=== PATIENT | female | born 1995 | race African-American/Black ===

== ENCOUNTER 2016-11-14 20:02 | Emergency (ER) | payer MEDICAID ==
[~2016-11-14] VITALS: Ht 170.2 cm; Wt 136.0 kg
[2016-11-14 20:07] VITALS: BP 119/71
== END 2016-11-14 22:15 | disposition left against medical advice (07) ==
LOC: ER 20:29
DX: R51 Headache (principal); Z53.21 Procedure and treatment not carried out due to patient leaving prior to being seen by health care provider

== ENCOUNTER 2018-07-04 01:43 | Emergency (ER) | payer MEDICAID ==
[~2018-07-04] VITALS: Ht 172.7 cm; Wt 136.0 kg
[2018-07-04] MEDS ORDERED: ONDANSETRON 4MG ODT PO ONE (03:15)
[2018-07-04] MEDS ORDERED: IBUPROFEN 600MG TABLET PO ONE (03:15)
[2018-07-04 04:15] VITALS: BP 123/68
== END 2018-07-04 04:45 | disposition home or self-care (01) ==
LOC: ER 01:43
DX: R51 Headache (principal); M94.0 Chondrocostal junction syndrome [Tietze]
CPT/HCPCS: 71045; 81025; 93005; 99283; Q0162